=== PATIENT | female | born 1980 | race African-American/Black ===

== ENCOUNTER 2022-06-06 18:32 | Emergency (ER) | payer BC ==
[~2022-06-06] VITALS: Ht 157.5 cm; Wt 74.0 kg
[2022-06-06] MEDS ORDERED: MORPHINE SULFATE 2 MG/ML CPJ (NOT FOR IM USE) IV ONE (20:30)
[2022-06-06] MEDS ORDERED: ONDANSETRON HCL 4MG/2ML INJ IV ONE (20:30)
[2022-06-06 20:46] LABS: BASOPHILS % 0.7 % (0.0-2.0); EOSINOPHILS % 1.4 % (0.0-5.0); HEMATOCRIT. 37.5 % (36.0-48.0); HEMOGLOBIN. 12.2 g/dL (12.0-16.0); LYMPHOCYTES % 38.1 % (20.0-50.0); MEAN CORPUSCULAR HEMOGLOBIN 28.1 pg (28.0-32.0); MEAN CORPUSCULAR VOLUME 86.5 fL (81.0-99.0); MONOCYTES % 7.6 % (2.0-8.0); NEUTROPHILS % 52.2 % (40.0-76.0); PLATELET 277 x1000/uL (130-400); RED BLOOD CELL COUNT 4.34 mill/uL (4.2-5.4); RED CELL DISTRIBUTION WIDTH 14.4 % (11.6-14.6)
[2022-06-06 20:49] LABS: CHLORIDE 104 mEq/L (98-107)
[2022-06-06 20:52] LABS: CLARITY URINE CLEAR (CLEAR); COLOR URINE YELLOW (YELLOW); KETONES URINE NEGATIVE (NEGATIVE); LEUKOCYTE ESTERASE URINE NEGATIVE (NEGATIVE); NITRITE URINE NEGATIVE (NEGATIVE); OCCULT BLOOD URINE TRACE (NEGATIVE); PH URINE 5.5 (4.5-8.0); PROTEIN URINE NEGATIVE (NEGATIVE); SPECIFIC GRAVITY URINE 1.015 (1.005-1.030); UROBILINOGEN URINE 0.2 E.U./dL (0.2-1.0)
[2022-06-06 20:55] LABS: HCG SCREEN NEGATIVE
[2022-06-06 21:42] VITALS: BP 113/76
[2022-06-06] MEDS ORDERED: IOHEXOL-300 100 ML BOTTLE ONE (22:26)
[2022-06-06] MEDS ORDERED: HYDR-4001 MT ×3 (23:30→23:52)
[2022-06-07] MEDS ORDERED: HYDROCODONE/ACETAMINOPHEN 5/325MG TABLET PO ONE (00:15)
== END 2022-06-07 00:15 | disposition home or self-care (01) ==
LOC: ER 18:32
DX: D25.9 Leiomyoma of uterus, unspecified (principal); J45.909 Unspecified asthma, uncomplicated; Z98.890 Other specified postprocedural states
CPT/HCPCS: 36415; 74177; 76856; 80053; 81003; 81025; 83690; 84703; 85025; 96374; 96375; 99285; J2270; J2405; Q9967